=== PATIENT | female | born 1945 | race Two or more races ===

== ENCOUNTER 2019-08-22 12:01 | Outpatient (CLI) | payer OTHER ==
[~2019-08-22] VITALS: Ht 152.4 cm; Wt 73.9 kg
== END 2019-08-22 13:54 | disposition home or self-care (01) ==
LOC: OFIC 805 12:01
DX: H91.8X3 Other specified hearing loss, bilateral (principal); H61.23 Impacted cerumen, bilateral

== ENCOUNTER 2019-10-03 08:29 | Outpatient (CLI) | payer OTHER | END 2019-10-03 13:30 | disposition home or self-care (01) | LOC: OFIC 805 08:29 | DX: H91.8X3 Other specified hearing loss, bilateral (principal) ==

== ENCOUNTER → 2022-12-26 | Outpatient (CLI) | payer OTHER | END | disposition home or self-care (01) | LOC: RX STUDY 07:56 | PROVIDERS: ATTEND Internal Medicine Gastroenterology | DX: R10.13 Epigastric pain (principal); K21.00 Gastro-esophageal reflux disease with esophagitis, without bleeding ==